=== PATIENT | female | born 1965 | race Caucasian/White ===

== ENCOUNTER → 2016-11-17 | Outpatient (CLI) | payer OTHER ==
[~2016-11-17] VITALS: Ht 157.5 cm; Wt 79.6 kg
[~2016-11-17] MED LIST: ABAT125S SQ; AMOX1TAB12 PO; CALC60OI2 TP; CATHETER FLUSH 10 ML SYR IV PRN; CLIN150V3 IJ; CLIN300C11 PO; CLIN300C3 PO; CLON1TAB3 PO; CYCL10TA45; DULO30CA PO; DULO60CA58 PO; DULO60CA6 PO; ESOM40CA52 PO; FLC1T PO; FLUOXETINE 40 MG; FLX20C; GBPN300C PO; HYDR-32 PO; HYDR-3820 PO; IMIP50TA4 PO; METHOTREXATE 2.5 MG; MILN50TA PO; MORP15TA PO; MUPI22OI TP; SMV20T PO; TOCI400V IV; TOCI80VI IV; VANCOMYCIN 1 GM/NS 250 ML IVPB IV ONE; ZLP10T; [UNRECOGNIZED DRUG - OTHER]; [UNRECOGNIZED DRUG - OTHER]
--- OUTSIDE RECORDS SUMMARY | 2016-11-17 09:54 | XMS REPORT | Continuity of Care Document ---
Author Author [facility] Organization [facility] Address Unknown Phone Unavailable Allergies Active Description Code Type Severity Reaction Onset Reported/Identified Relationship to Patient Clinical Status Yes NKANo Known Allergies NKA Miscellaneous Allergy Unknown N/ A 11/26/2005 Medications Problems Date Dx Coded Attending Type Code Diagnosis Diagnosed By 02/19/2012 Ot 272.4 02/19/2012 Ot 311 02/19/2012 Ot 338.29 02/19/2012 Ot 682.0 02/19/2012 Ot 714.0 02/19/2012 Ot 780.52 02/19/2012 Ot V15.81 12/31/2012 Ot 780.4 02/20/2015 GERRY MAURER DOLINE S Ot 250.00 02/20/2015 PHILIP MAURER DOQUELINE S Ot 272.4 04/20/2015 LIBERTAD DOPHILIPMIKI S Ot 272.4 07/20/2015 Ot V76.12 07/20/2015 PARAGNDBRIAN DO, MIKI S Ot 272.4 07/20/2015 PARAGNDBRIAN DO, MIKI S Ot 720.2 07/20/2015 LIBERTAD DO MIKI S Ot 724.2 07/20/2015 LIBERTAD DOPHILIPMIKI S Ot V58.69 07/20/2015 PARAGNDER DOPHILIPMIKI S Ot V70.0 07/20/2015 PARAGNDER DO, MIKI S Ot 272.4 07/20/2015 PARAGNDER DO, MIKI S Ot 780.79 07/20/2015 LIBERTAD DOPHILIPMIKI S Ot 790.29 07/20/2015 SADIQ ALMENDAREZ SERVICE LEARNING COORDINATOR Ot 272.4 07/20/2015 SADIQ ALMENDAREZ SERVICE LEARNING COORDINATOR Ot 790.5 07/20/2015 GERRY MAURER DOLINE S Ot 250.00 07/20/2015 PHILIP MAURER DOQUELINE S Ot 272.4 07/20/2015 GERRY MAURER DOLINE S Ot 272.4 08/09/2015 GERRY MAURER DOLINE S Ot E78.5 08/09/2015 GERRY MAURER DOLINE S Ot I10 12/22/2015 REYMUNDO MANN Ot R22.31 01/25/2016 ZARIA MUHAMMAD MD Ot L40.9 PSORIASIS, UNSPECIFIED 01/25/2016 ZARIA MUHAMMAD MD Ot M06.9 RHEUMATOID ARTHRITIS, UNSPECIFIED 01/25/2016 ZARIA MUHAMMAD MD Ot Z79.891 ALF (CURRENT) USE OF OPIATE ANALGE 01/25/2016 REYMUNDO MANN Ot R22.31 LOCALIZED SWELLING, MASS AND LUMP , RIGHT 01/28/2016 ZARIA MUHAMMAD MD Ot L40.9 PSORIASIS, UNSPECIFIED 01/28/2016 ZARIA MUHAMMAD MD Ot M06.9 RHEUMATOID ARTHRITIS, UNSPECIFIED 01/28/2016 ZARIA MUHAMMAD MD Ot Z79.891 ALF (CURRENT) USE OF OPIATE ANALGE 04/17/2016 REYMUNDO MANN Ot R22.31 LOCALIZED SWELLING, MASS AND LUMP , RIGHT 04/23/2016 PARAGKAREN SMITH MIKI S Ot Z12.31 ENCNTR SCREEN MAMMOGRAM FOR MALIGNANT NE Procedures Results Encounters ACCT No. Visit Date/Time Discharge Status Pt. Type Provider Facility Loc./Unit Complaint [id number] 01/25/2016 21:05:00 2015 21:30:00 DIS Emergency ZARIA MUHAMMAD MD [facility] ER L ANKLE ULCER [id number] 07/20/2015 08:26:00 2014 23:59:59 CLS Outpatient PARAGNDPHILIP TORRES DOQUELINE S [facility] LAB [id number] 03/28/2015 07:55:00 2014 23:59:59 CLS Outpatient LIBERTAD SMITH MIKI S [facility] LAB [id number] 01/16/2015 09:14:00 2014 23:59:59 CLS Outpatient PARAGNDBRIAN SMITH MIKI S [facility] LAB [id number] 06/09/2014 07:24:00 2013 23:59:59 CLS Outpatient SADIQ ALMENDAREZP [facility] LAB [id number] 12/30/2013 07:46:00 2013 23:59:59 CLS Outpatient ORENDER DO, MIKI S [facility] LAB [id number] 09/26/2013 09:31:00 2012 23:59:59 CLS Outpatient ORENDER DO, MIKI S [facility] LAB [id number] 05/23/2013 07:56:00 2012 23:59:59 CLS Outpatient ORENDER DO, MIKI S [facility] RAD [id number] 04/17/2016 12:29:00 ACT Outpatient ORENDER DO, MIKI S [facility] RAD [id number] 10/29/2015 15:26:00 ACT Outpatient REYMUNDO MANN [facility] RAD [id number] 07/20/2015 08:26:00 Document Registration [id number] 12/31/2012 20:10:00 Document Registration [id number] 11/26/2012 10:36:00 Document Registration [id number] 02/11/2012 23:58:00 Document Registration
[2016-11-17 10:44] VITALS: BP 130/78
== END ==
LOC: SDC 09:50
PROVIDERS: ATTEND Nurse Practitioner
DX: L03.113 Cellulitis of right upper limb (principal)
CPT/HCPCS: 96365

== ENCOUNTER 2016-11-18 09:02 | Inpatient (IN) | payer OTHER ==
[~2016-11-18] VITALS: Ht 157.5 cm; Wt 80.7 kg
[~2016-11-18 09:02] MED LIST changes: -AMOX1TAB12 PO; -CATHETER FLUSH 10 ML SYR IV PRN; -CLIN300C11 PO; -DULO60CA58 PO; -ESOM40CA52 PO; -HYDR-3820 PO; -TOCI400V IV; -VANCOMYCIN 1 GM/NS 250 ML IVPB IV ONE
[2016-11-18] MEDS ORDERED: PATIENT MAY USE OWN MEDS, ALL PO SCH (09:15)
[2016-11-18] MEDS ORDERED: HYDROcodone/APAP 10 MG/325 MG (LORTAB) TAB PO PRN ×2 (09:15→19:15)
[2016-11-18] MEDS ORDERED: VANCOMYCIN INJECTION 0.1 MG in NS (IVPB) 250 ML IV SCH (09:15)
[2016-11-18] MEDS: VANCOMYCIN 1250 MG/NS 250 ML IVPB IV SCH ×4 (10:53→21:05)
[2016-11-18 10:54] LABS: BASOPHILS % (AUTO) 0 % (0-10); EOSINOPHILS # (AUTO) 0.1 10^3/uL (0.0-0.3); EOSINOPHILS % (AUTO) 1 % (0-10); LYMPHOCYTES # (AUTO) 2.2 X 10^3 (1.0-4.0); LYMPHOCYTES % (AUTO) 24 % (12-44); MEAN CORPUSCULAR HEMOGLOBIN 30 PG (25-34); MEAN CORPUSCULAR HGB CONC 33 G/DL (32-36); MEAN CORPUSCULAR VOLUME 90 FL (80-99); MEAN PLATELET VOLUME 9.2 FL (7.4-10.4); MONOCYTES # (AUTO) 0.7 X 10^3 (0.0-1.0); MONOCYTES % (AUTO) 8 % (0-12); NEUTROPHILS # (AUTO) 5.9 X 10^3 (1.8-7.8); NEUTROPHILS % (AUTO) 66 % (42-75); PLATELET COUNT 260 10^3/uL (130-400); RED BLOOD COUNT 4.02 10^6/uL (4.35-5.85); RED CELL DISTRIBUTION WIDTH 14.4 % (10.0-14.5); WHITE BLOOD COUNT 8.9 10^3/uL (4.3-11.0)
[2016-11-18] MEDS ORDERED: HYDR-3820 PO (11:12)
[2016-11-18] MEDS ORDERED: DULO60CA58 PO (11:12)
[2016-11-18] MEDS ORDERED: ESOM40CA52 PO (11:12)
[2016-11-18] MEDS ORDERED: IMIP50TA4 PO (11:12)
[2016-11-18] MEDS ORDERED: CLON1TAB3 PO (11:12)
[2016-11-18] MEDS ORDERED: CLIN300C11 PO (11:12)
[2016-11-18 11:13] LABS: ALANINE AMINOTRANSFERASE 22 U/L (0-55); ALBUMIN 3.7 G/DL (3.2-4.5); ANION GAP 7 MMOL/L (5-14); ASPARTATE AMINO TRANSFERASE 21 U/L (5-34); BILIRUBIN,TOTAL 0.3 MG/DL (0.1-1.0); BLOOD UREA NITROGEN 11 MG/DL (7-18); BUN/CREATININE RATIO 15; CALCIUM 8.7 MG/DL (8.5-10.1); CARBON DIOXIDE 23 MMOL/L (21-32); CHLORIDE 109 MMOL/L (98-107); CREATININE SERUM 0.75 MG/DL (0.60-1.30); GFR ESTIMATED > 60; GLUCOSE 107 MG/DL (70-105); POTASSIUM 4.1 MMOL/L (3.6-5.0); SODIUM 139 MMOL/L (135-145); TOTAL PROTEIN 6.3 G/DL (6.4-8.2)
[2016-11-18 11:24] VITALS: BP 143/89
[2016-11-18] MEDS ORDERED: TOCI400V IV (12:50)
--- OUTSIDE RECORDS SUMMARY | 2016-11-18 13:27 | XMS REPORT | Continuity of Care Document ---
Author Author [facility] Organization [facility] Address Unknown Phone Unavailable Allergies Active Description [...] DOPHILIPMIKI S Ot 790.29 07/20/2015 SADIQ ALMENDAREZ INTERNATIONAL BANK MANAGER Ot 272.4 07/20/2015 SADIQ ALMENDAREZ INTERNATIONAL BANK MANAGER Ot 790.5 07/20/2015 GERRY MAURER DOLINE S [...] UNSPECIFIED 01/25/2016 ZARIA MUHAMMAD MD Ot Z79.891 RETIREMENT (CURRENT) USE OF OPIATE ANALGE 01/25/2016 REYMUNDO MANN Ot R22.31 LOCALIZED SWELLING, MASS AND LUMP , RIGHT 01/28/2016 ZARIA MUHAMMAD MD Ot L40.9 PSORIASIS, UNSPECIFIED 01/28/2016 ZARIA MUHAMMAD MD Ot M06.9 RHEUMATOID ARTHRITIS, UNSPECIFIED 01/28/2016 ZARIA MUHAMMAD MD Ot Z79.891 RETIREMENT (CURRENT) USE OF OPIATE ANALGE 04/17/2016 REYMUNDO MANN Ot R22.31 LOCALIZED SWELLING, MASS AND LUMP , RIGHT 04/23/2016 PARAGKAREN SMITH MIKI S Ot Z12.31 ENCNTR SCREEN MAMMOGRAM FOR MALIGNANT NE Procedures Results Encounters ACCT No. Visit Date/Time Discharge Status Pt. Type Provider Facility Loc./Unit Complaint [id number] 01/25/2016 21:05:00 2015 21:30:00 DIS Emergency ZARIA MUHAMMAD MD [facility] ER L ANKLE ULCER [id number] 07/20/2015 08:26:00 2014 23:59:59 CLS Outpatient PARAGNDPHILIP TORRES DOQUELINE S [facility] LAB [id number] 03/28/2015 07:55:00 2014 23:59:59 CLS Outpatient LIBERTAD SMITH MIKI S [facility] LAB [id number] 01/16/2015 09:14:00 2014 23:59:59 CLS Outpatient PARAGNDBRIAN SMITH MIKI S [facility] LAB [id number] 06/09/2014 07:24:00 2013 23:59:59 CLS Outpatient SADIQ ALMENDAREZP [facility] LAB [id number] 12/30/2013 07:46:00 2013 23:59:59 CLS Outpatient ORENDER DO, MIKI S [facility] LAB [id number] 09/26/2013 09:31:00 2012 23:59:59 CLS Outpatient ORENDER DO, MIKI S [facility] LAB [id number] 05/23/2013 07:56:00 2012 23:59:59 CLS Outpatient ORENDER DO, MIKI S [facility] RAD [id number] 04/17/2016 12:29:00 ACT Outpatient ORENDER DO, MIKI S [facility] RAD [id number] 10/29/2015 15:26:00 ACT Outpatient REYMUNDO MANN [facility] RAD [id number] 07/20/2015 08:26:00 Document Registration [id number] 12/31/2012 20:10:00 Document Registration [id number] 11/26/2012 10:36:00 Document Registration [id number] 02/11/2012 23:58:00 Document Registration
[2016-11-18 14:15] VITALS: BP 143/82
[2016-11-18] MEDS: AUGMENTIN 875 MG TAB (AMOXICILLIN/CLAVULANATE) PO SCH ×2 (15:53→17:23)
[2016-11-18] MEDS: ENOXAPARIN 40 MG/0.4 ML (LOVENOX) SYR SC SCH (15:53)
[2016-11-18 16:55] VITALS: BP 143/87
[2016-11-18] MEDS ORDERED: FLU TRIvalent (5 YOA+) 2016-17 (AFLURIA) 0.5 ML IM ONE (19:15)
[2016-11-18] MEDS ORDERED: methylPREDNISolone 40 MG/ML (Solu-MEDROL) VIAL IV NR (19:15)
[2016-11-18] MEDS ORDERED: clonazePAM 1 MG (KlonoPIN) TAB PO SCH (19:30)
[2016-11-18] MEDS ORDERED: IMIPRAMINE 25 MG (TOFRANIL) TAB PO SCH (19:30)
[2016-11-18] MEDS ORDERED: NON-FORMULARY MEDICATION 1 EA EA (Imipramine HCl 50 MG) PO SCH (19:30)
[2016-11-18 19:35] VITALS: BP 123/71
--- NOTE | 2016-11-18 19:46 | History & Physicial ---
History of Present Illness History of Present Illness Reason for visit/HPI This is a 51 year old female who presented to my office for a 1 day recheck on a cat bite to her right arm. She had been sent the day prior for a gram of vancomycin as an outpatient and started on clindamycin but her arm had worsened with erythema outside her marked lines and increased swelling so it was decided to admit her for IV antibiotics. Date of Admission Nov 18, 2016 at 9:57 am I consulted on this patient on 11/18/16 19:41 Attending Physician Marcella Balbuena DO Admitting Physician Marcella Balbuena DO Consult Allergies and Home Medications Allergies Coded Allergies: NKANo Known Allergies (Verified Allergy, Unknown, 11/26/05) Home Medications Clindamycin HCl 300 Mg Capsule 600 MG PO TID (Reported) TAKES 2 (300 MG) CAPSULES Clonazepam 1 Mg Tablet 1 MG PO DAILY@1930 (Reported) Duloxetine HCl 60 Mg Capsule.dr 60 MG PO DAILY (Reported) Esomeprazole Magnesium 40 Mg Capsule.dr 40 MG PO DAILY (Reported) Hydrocodone/Acetaminophen 1 Each Tablet 3 TAB PO DAILY (Reported) Imipramine HCl 50 Mg Tablet 50 MG PO DAILY@1930 (Reported) Tocilizumab 400 Mg/20 Ml Vial 680 MG IV EVERY 4 WEEKS (Reported) Past Xudjdql-Apyntd-Fsuxbv Hx Patient Social History Alcohol Use: Denies Use Recreational Drug Use: No Smoking Status: Never a Smoker Former smoker/When Quit: Nov 20, 1999 Physical Abuse Screen: No Sexual Abuse: No Recent Foreign Travel: No Contact w/other who traveled: No Recent Hopitalizations: Yes Seasonal Allergies Seasonal Allergies: No Surgeries HX Surgeries: Yes (OP ON FEET) Respiratory Hx Respiratory Disorders: No Cardiovascular Hx Cardiovascular Disorders: No Neurological Hx Neurological Disorders: No Reproductive System Hx Reproductive Disorders: No Genitourinary Hx Genitourinary Disorders: No Gastrointestinal Hx Gastrointestinal Disorders: No Musculoskeletal Hx Musculoskeletal Disorders: Yes Musculoskeletal Disorders: Fibromyalgia, Rheumatoid Arthritis Endocrine Hx Endocrine Disorders: No HEENT HX ENT Disorders: No Cancer Hx Cancer: No Psychosocial Hx Psychiatric Problems: Yes Behavioral Health Disorders: Anxiety, Depression Integumentary HX Skin/Integumentary Disorder: Yes (CELLULITIS ON RIGHT FOREARM) Blood Transfusions Hx Blood Disorders: No Family Medical History Family Hx: Patient reports no known family medical history. Constitutional: No no symptoms reported, No see HPI, No chills, No diaphoresis , No dizziness, No fever, No malaise, No weakness, No weight gain, No weight loss, No other EENTM: No blurred vision, No dental problems, No double vision, No ear discharge, No ear pain, No epistaxis, No eye pain, No hearing loss, No hoarseness, No mouth pain, No mouth swelling, No no symptoms reported, No nose congestion, No nose pain, No other, No see HPI, No tearing, No throat pain, No throat swelling, No vision loss Respiratory: No no symptoms reported, No see HPI, No cough, No dyspnea on exertion, No hemoptysis, No orthopnea, No phlegm, No short of breath, No stridor , No wheezing, No other Cardiovascular: No no symptoms reported, No see HPI, No chest pain, No edema, No Hx of Intervention, No palpitations, No syncope, No vascular heart diseas, No other Gastrointestinal: No RUQ, No LUQ, No RLQ, No LLQ, No no symptoms reported, No see HPI, No abdominal pain, No constipation, No diarrhea, No dysphagia, No hematemesis, No heartburn, No jaundice, No loss of appetite, No melena, No nausea, No vomiting, No other Genitourinary: No no symptoms reported, No see HPI, No decreased output, No discharge, No dysuria, No frequency, No hematuria, No hesitancy, No incontinence , No nocturia, No pain, No other Musculoskeletal: back pain joint pain joint swelling Skin: change in color (right arm redness and swelling) Psychiatric/Neurological: Denies No Symptoms Reported, Denies See HPI, Denies Anxiety, Denies Depressed, Denies Emotional Problems, Denies Headache, Denies Numbness, Denies Paresthesia, Denies Pre-Existing Deficit, Denies Seizure, Denies Tingling, Denies Tremors, Denies Weakness, Denies Other Physical Exam Vital Signs Vital Sign - Last 12Hours 11/18/16 11:24 Temp 98.0 Pulse 66 Resp 18 B/P 143/89 Pulse Ox 95 O2 Delivery Room Air Capillary Refill : General Appearance: No Apparent Distress HEENT: Normal ENT Inspection Neck: Supple Respiratory: Lungs Clear Cardiovascular: Regular Rate, Rhythm Gastrointestinal: Normal Bowel Sounds Non Tender Soft Rectal: Deferred Back: No CVA Tenderness Extremity: Non Tender No Calf Tenderness No Pedal Edema Neurologic/Psychiatric: Alert Oriented x3 Skin: Erythema (to right forearm with swelling and numerous scabbed puncture wounds) Lymphatic: No Adenopathy Comments Laboratory Tests 11/18/16 10:35: Alanine Aminotransferase (ALT/SGPT) 22, Albumin 3.7, Alkaline Phosphatase 59, Anion Gap 7, Aspartate Amino Transf (AST/SGOT) 21, BUN/Creatinine Ratio 15, Basophils # (Auto) 0.0, Basophils (%) (Auto) 0, Blood Urea Nitrogen 11, Calcium Level 8.7, Carbon Dioxide Level 23, Chloride Level 109H, Creatinine 0.75, Eosinophils # (Auto) 0.1, Eosinophils (%) (Auto) 1, Estimat Glomerular Filtration Rate > 60, Glucose Level 107H, Hematocrit 36, Hemoglobin 12.0, Lymphocytes # (Auto) 2.2, Lymphocytes (%) (Auto) 24, Mean Corpuscular Hemoglobin 30, Mean Corpuscular Hemoglobin Concent 33, Mean Corpuscular Volume 90, Mean Platelet Volume 9.2, Monocytes # (Auto) 0.7, Monocytes (%) (Auto) 8, Neutrophils # (Auto) 5.9, Neutrophils (%) (Auto) 66, Platelet Count 260, Potassium Level 4.1, Red Blood Count 4.02L, Red Cell Distribution Width 14.4, Sodium Level 139, Total Bilirubin 0.3, Total Protein 6.3L, White Blood Count 8.9 Assessment/Plan Assessment and Plan 1. Right upper extremity Cellulitis--IV vancomycin and augmentin due to cat bite Clinical Quality Measures DVT/VTE Risk/Contraindication: Risk Factor Score Per Nursin RFS Level Per Nursing on Admit: 2=Moderate MARCELLA BALBUENA DO Nov 18, 2016 7:46 pm
[2016-11-18] MEDS ORDERED: VANCOMYCIN 750 MG ADD-VANTAGE VIAL IV ONE (20:49)
[2016-11-18] MEDS ORDERED: VANCOMYCIN 500 MG/VIAL IV ONE (20:49)
[2016-11-18] MEDS ORDERED: SODIUM CHLORIDE (ADD-VANTAGE) 250 ML ONE (20:55)
[2016-11-19 00:35] VITALS: BP 144/76
[2016-11-19 04:00] VITALS: BP 143/79
[2016-11-19] MEDS: PANTOPRAZOLE 40 MG (PROTONIX) TAB PO SCH (06:01)
[2016-11-19] MEDS: AUGMENTIN 875 MG TAB (AMOXICILLIN/CLAVULANATE) PO SCH ×2 (06:01→17:40)
[2016-11-19 08:00] VITALS: BP 148/98
[2016-11-19] MEDS ORDERED: TROUGH ORDER-PHARMACY XX NR (08:00)
[2016-11-19 08:32] LABS: ANION GAP 12 MMOL/L (5-14); BLOOD UREA NITROGEN 13 MG/DL (7-18); BUN/CREATININE RATIO 17; CALCIUM 9.5 MG/DL (8.5-10.1); CARBON DIOXIDE 21 MMOL/L (21-32); CHLORIDE 106 MMOL/L (98-107); CREATININE SERUM 0.75 MG/DL (0.60-1.30); GFR ESTIMATED > 60; GLUCOSE 199 MG/DL (70-105); POTASSIUM 3.9 MMOL/L (3.6-5.0); SODIUM 139 MMOL/L (135-145)
[2016-11-19] MEDS ORDERED: HYDROcodone/APAP 10 MG/325 MG (LORTAB) TAB PO PRN ×2 (09:00→13:00)
[2016-11-19] MEDS ORDERED: NON-FORMULARY MEDICATION 1 EA EA (Duloxetine HCl 60 MG) PO SCH (09:00)
[2016-11-19] MEDS ORDERED: DULoxetine 30 MG (CYMBALTA) CAP PO SCH (09:00)
[2016-11-19] MEDS ORDERED: NON-FORMULARY MEDICATION 1 EA EA (Esomeprazole Magnesium 40 MG) PO SCH (09:00)
[2016-11-19] MEDS: ENOXAPARIN 40 MG/0.4 ML (LOVENOX) SYR SC SCH (09:31)
[2016-11-19] MEDS: VANCOMYCIN 1250 MG/NS 250 ML IVPB IV SCH ×4 (09:31→20:03)
[2016-11-19 12:00] VITALS: BP 143/80
[2016-11-19 16:45] VITALS: BP 147/79
--- NOTE | 2016-11-19 18:54 | Progress Note (SOAP) ---
Subjective Subjective/Events-last exam Fwup right arm cellulitis from cat bite. Doing much better--less redness and less swelling. Objective Exam Vital Signs Date Time Temp Pulse Resp B/P Pulse Ox O2 Delivery O2 Flow Rate FiO2 11/19/16 16:45 98.0 79 18 147/79 94 Room Air 11/19/16 12:00 99.5 92 18 143/80 91 Room Air 11/19/16 08:00 97.8 88 18 148/98 95 Room Air 11/19/16 04:00 98.0 79 18 143/79 96 Room Air 11/19/16 00:35 98.5 82 18 144/76 92 Room Air 11/18/16 19:35 98.5 83 18 123/71 96 Room Air I & O 11/19/16 07:00 Intake Total 1540 ml Output Total 550 ml Balance 990 ml Capillary Refill : General Appearance: No Apparent Distress Neck: Supple Neurologic/Psychiatric: Alert Oriented x3 Skin: Erythema (to right forearm much less and much less swelling) Results Lab Laboratory Tests 11/19/16 08:03: Anion Gap 12, BUN/Creatinine Ratio 17, Blood Urea Nitrogen 13, Calcium Level 9.5 , Carbon Dioxide Level 21, Chloride Level 106, Creatinine 0.75, Estimat Glomerular Filtration Rate > 60, Glucose Level 199H, Potassium Level 3.9, Sodium Level 139, Vancomycin Level Trough 13.7 Assessment/Plan Assessment/Plan Assess & Plan/Chief Complaint 1. Right Arm Cellulitis from Cat Bite--continue vancomycin and augmentin, likely home tomorrow Diagnosis/Problems: Clinical Quality Measures DVT/VTE Risk/Contraindication: Risk Factor Score Per Nursin RFS Level Per Nursing on Admit: 2=Moderate MIKI MAURER DO Nov 19, 2016 6:54 pm
[2016-11-19] MEDS ORDERED: clonazePAM 1 MG (KlonoPIN) TAB PO SCH (19:30)
[2016-11-19] MEDS ORDERED: IMIPRAMINE 50 MG PO SCH (19:30)
[2016-11-19 20:00] VITALS: BP 150/71
[2016-11-20] VITALS: BP 120/64
[2016-11-20] MEDS: AUGMENTIN 875 MG TAB (AMOXICILLIN/CLAVULANATE) PO SCH (06:09)
[2016-11-20] MEDS: PANTOPRAZOLE 40 MG (PROTONIX) TAB PO SCH (06:09)
[2016-11-20 08:00] VITALS: BP 124/72
[2016-11-20] MEDS ORDERED: AMOX1TAB12 PO (08:53)
[2016-11-20] MEDS ORDERED: DULOXETINE 60MG CAPSULE PO SCH (09:00)
[2016-11-20] MEDS ORDERED: VANCOMYCIN 1250 MG/NS 250 ML IVPB IV SCH ×2 (09:00)
[2016-11-20] MEDS: ENOXAPARIN 40 MG/0.4 ML (LOVENOX) SYR SC SCH (09:02)
[2016-11-20] MEDS ORDERED: CATHETER FLUSH 10 ML SYR IV PRN (10:15)
[2016-11-20 10:25] VITALS: BP 124/72
[2016-11-20] MEDS ORDERED: CATHETER FLUSH 10 ML SYR IV SCH (14:00)
--- NOTE | 2016-11-20 18:06 | Discharge Summary ---
Diagnosis/Chief Complaint Date of Admission Nov 18, 2016 at 9:57 am Date of Discharge Nov 20, 2016 at 10:25 am Discharge Date: Nov 20, 2016 Admission Diagnosis Admission Diagnosis 1. Right upper extremity Cellulitis--IV vancomycin and augmentin due to cat bite Discharge Diagnosis 1. Right Arm Cellulitis--improved 2. Right Arm Cat Bite--improving 3. Rheumatoid Arthritis--stable 4. Depression--stable Reason Hospital Visit This is a 51 year old female who presented to my office for a 1 day recheck on a cat bite to her right arm. She had been sent the day prior for a gram of vancomycin as an outpatient and started on clindamycin but her arm had worsened with erythema outside her marked lines and increased swelling so it was decided to admit her for IV antibiotics. Discharge Summary Hospital Course Hospital Course This is a 51 year old female who presented to my office for a 1 day recheck on a cat bite to her right arm. She had been sent the day prior for a gram of vancomycin as an outpatient and started on clindamycin but her arm had worsened with erythema outside her marked lines and increased swelling so it was decided to admit her for IV antibiotics. She was admitted and started on IV vancomycin and oral augmentin. By the following hospital day, her right arm redness and swelling were much improved. She was afebrile. She was kept one more day for IV antibiotics due to the fact that she takes immunocompromising drugs for her rheumatoid. By the day of discharge, her right arm redness was resolved, there was no swelling or pain in the arm and no palpable lymph nodes. She was given her morning dose of IV vancomycin and sent home to continue oral augmentin. She will followup with me in my office in 1 week. Labs Laboratory Tests 11/18/16 10:35: Chloride Level 109H, Glucose Level 107H, Red Blood Count 4.02L, Total Protein 6.3L 11/19/16 08:03: Glucose Level 199H Procedures None. Discharge Physical Examination Allergies: Coded Allergies: NKANo Known Allergies (Verified Allergy, Unknown, 11/26/05) Vitals & I&Os Vital Signs Date Time Temp Pulse Resp B/P Pulse Ox O2 Delivery O2 Flow Rate FiO2 11/20/16 10:25 72 18 124/72 97 11/20/16 08:00 98.8 Room Air General Appearance: Alert, Oriented X3, Cooperative, No Acute Distress Skin: Other (right arm with much less erythema and swelling and nontender) Psych/Mental Status: Mental Status NL, Mood NL Discharge Home Medications Reviewed and agree with Discharge Medication list on patient's Discharge Instruction sheet Instructions to Patient/Family Please see electonic discharge instructions given to patient. Clinical Quality Measures DVT/VTE Risk/Contraindication: Risk Factor Score Per Nursin RFS Level Per Nursing on Admit: 2=Moderate MIKI MAURER DO Nov 20, 2016 6:06 pm
== END 2016-11-20 10:25 | disposition home or self-care (01) | DRG 603 ==
LOC: 4TH 09:57 → SURG 09:58 → 4TH 14:00
PROVIDERS: ADMIT Family Medicine; ATTEND Family Medicine
DX: L03.113 Cellulitis of right upper limb (principal); S51.851A Open bite of right forearm, initial encounter; W55.01XA Bitten by cat, initial encounter; Y99.8 Other external cause status; M79.7 Fibromyalgia; M06.9 Rheumatoid arthritis, unspecified; F32.9 Major depressive disorder, single episode, unspecified; F41.9 Anxiety disorder, unspecified
CPT/HCPCS: 36415; 76937; 80048; 80053; 80202; 85025

== ENCOUNTER → 2017-05-11 | Outpatient (CLI) | payer OTHER ==
[~2017-05-11] MED LIST changes: +AMOX1TAB12 PO; +CLIN300C11 PO; +DULO60CA58 PO; +ESOM40CA52 PO; +HYDR-3820 PO; +TOCI400V IV
--- NOTE | 2017-05-11 18:26 | Diagnostic Imaging Report ---
INDICATION: Cough. COMPARISON: 02/18/2011 FINDINGS: Frontal and lateral radiographic views of the chest were obtained and showed normal cardiac silhouette and pulmonary vasculature. The lungs show minimal airspace opacities within the lateral left lung base likely on the basis of atelectasis. The lungs are otherwise clear. There is no large effusion or pneumothorax on either side. Osseous structures show no gross acute abnormalities. IMPRESSION: 1. Probable left basilar atelectasis. Otherwise, no acute cardiopulmonary process. Dictated by: Dictated on workstation # [id number]
== END ==
LOC: RAD 16:57
PROVIDERS: ATTEND Family Medicine
DX: R05 Cough (principal)
CPT/HCPCS: 71020

== ENCOUNTER → 2017-06-17 | Outpatient (CLI) | payer OTHER ==
[2017-06-17 16:49] LABS: BASOPHILS % (AUTO) 0 % (0-10); EOSINOPHILS # (AUTO) 0.1 10^3/uL (0.0-0.3); EOSINOPHILS % (AUTO) 1 % (0-10); LYMPHOCYTES # (AUTO) 2.6 X 10^3 (1.0-4.0); LYMPHOCYTES % (AUTO) 28 % (12-44); MEAN CORPUSCULAR HEMOGLOBIN 31 PG (25-34); MEAN CORPUSCULAR HGB CONC 34 G/DL (32-36); MEAN CORPUSCULAR VOLUME 91 FL (80-99); MEAN PLATELET VOLUME 9.9 FL (7.4-10.4); MONOCYTES # (AUTO) 0.7 X 10^3 (0.0-1.0); MONOCYTES % (AUTO) 8 % (0-12); NEUTROPHILS # (AUTO) 5.9 X 10^3 (1.8-7.8); NEUTROPHILS % (AUTO) 63 % (42-75); PLATELET COUNT 244 10^3/uL (130-400); RED BLOOD COUNT 4.75 10^6/uL (4.35-5.85); WHITE BLOOD COUNT 9.3 10^3/uL (4.3-11.0)
[2017-06-19 13:12] LABS: MYCOPLASMA IGM IFA ANTIBODY <1:10 (<1:10)
[2017-06-19 15:23] LABS: B PARAPERTUSIS DNA Not Detected (Not Detected); B PERTUSSIS DNA Not Detected (Not Detected)
== END ==
LOC: LAB 16:19
PROVIDERS: ATTEND Family Medicine
DX: R05 Cough; Z20.818 Contact with and (suspected) exposure to other bacterial communicable diseases
CPT/HCPCS: 36415; 85025; 86738; 87798

== ENCOUNTER → 2017-07-27 | Outpatient (CLI) | payer OTHER ==
[2017-07-27 08:35] LABS: ALANINE AMINOTRANSFERASE 23 U/L (0-55); ALBUMIN 4.5 GM/DL (3.2-4.5); ANION GAP 11 MMOL/L (5-14); ASPARTATE AMINO TRANSFERASE 17 U/L (5-34); BILIRUBIN,TOTAL 0.5 MG/DL (0.1-1.0); BLOOD UREA NITROGEN 13 MG/DL (7-18); BUN/CREATININE RATIO 17; CALCIUM 9.6 MG/DL (8.5-10.1); CARBON DIOXIDE 23 MMOL/L (21-32); CHLORIDE 108 MMOL/L (98-107); CHOLESTEROL 301 MG/DL (< 200); CREATININE SERUM 0.76 MG/DL (0.60-1.30); DIRECT LDL 194 MG/DL (1-129); GFR ESTIMATED > 60; GLUCOSE 106 MG/DL (70-105); POTASSIUM 4.4 MMOL/L (3.6-5.0); SODIUM 142 MMOL/L (135-145); TOTAL PROTEIN 7.2 GM/DL (6.4-8.2); TRIGLYCERIDES 179 MG/DL (<150); VLDL CHOLESTEROL 36 MG/DL (5-40)
[2017-07-27 08:55] LABS: THYROID STIMULATING HORMONE 3.82 UIU/ML (0.35-4.94)
== END ==
LOC: LAB 08:03
PROVIDERS: ATTEND Family Medicine
DX: E88.81 Metabolic syndrome and other insulin resistance (principal)
CPT/HCPCS: 36415; 80053; 80061; 83036; 84443

== ENCOUNTER → 2018-02-12 | Outpatient (CLI) | payer OTHER | LOC: RAD 09:50 | PROVIDERS: ATTEND Obstetrics & Gynecology | DX: Z12.31 Encounter for screening mammogram for malignant neoplasm of breast (principal) ==

== ENCOUNTER → 2018-04-05 | Outpatient (CLI) | payer OTHER ==
[~2018-04-05] MED LIST changes: +CLON1TAB4 PO; +ONDA4TAB10 PO; +PANT40TA2 PO; +SUCR1TAB PO; +SUCR1TAB36 PO
[2018-04-05 10:33] LABS: BASOPHILS % (AUTO) 0 % (0-10); EOSINOPHILS # (AUTO) 0.5 10^3/uL (0.0-0.3); EOSINOPHILS % (AUTO) 5 % (0-10); HEMATOCRIT 45 % (35-52); HEMOGLOBIN 15.1 G/DL (11.5-16.0); LYMPHOCYTES # (AUTO) 2.2 X 10^3 (1.0-4.0); LYMPHOCYTES % (AUTO) 22 % (12-44); MEAN CORPUSCULAR HEMOGLOBIN 31 PG (25-34); MEAN CORPUSCULAR HGB CONC 34 G/DL (32-36); MEAN CORPUSCULAR VOLUME 90 FL (80-99); MEAN PLATELET VOLUME 9.9 FL (7.4-10.4); MONOCYTES # (AUTO) 0.7 X 10^3 (0.0-1.0); MONOCYTES % (AUTO) 7 % (0-12); NEUTROPHILS # (AUTO) 6.4 X 10^3 (1.8-7.8); NEUTROPHILS % (AUTO) 65 % (42-75); PLATELET COUNT 268 10^3/uL (130-400); RED BLOOD COUNT 4.94 10^6/uL (4.35-5.85); RED CELL DISTRIBUTION WIDTH 13.8 % (10.0-14.5)
[2018-04-05 10:53] LABS: ALANINE AMINOTRANSFERASE 25 U/L (0-55); ALBUMIN 4.6 GM/DL (3.2-4.5); ALKALINE PHOSPHATASE 77 U/L (40-136); AMYLASE 39 U/L (25-125); BILIRUBIN,TOTAL 0.5 MG/DL (0.1-1.0); BUN/CREATININE RATIO 20; CARBON DIOXIDE 25 MMOL/L (21-32); CHLORIDE 108 MMOL/L (98-107); CREATININE SERUM 0.82 MG/DL (0.60-1.30); GFR ESTIMATED > 60; GLUCOSE 109 MG/DL (70-105); LIPASE 15 U/L (8-78); POTASSIUM 4.1 MMOL/L (3.6-5.0); SODIUM 142 MMOL/L (135-145); TOTAL PROTEIN 7.1 GM/DL (6.4-8.2)
[2018-04-05 11:12] LABS: ERYTHROCYTE SEDIMENTATION RATE 2 MM/HR (0-30)
== END ==
LOC: LAB 10:15
PROVIDERS: ATTEND Family Medicine
DX: R10.13 Epigastric pain (principal)
CPT/HCPCS: 36415; 80053; 82150; 83690; 85025; 85652

== ENCOUNTER 2018-04-11 17:06 | Inpatient (IN) | payer OTHER ==
[~2018-04-11] VITALS: Ht 162.6 cm; Wt 80.8 kg
[~2018-04-11 17:06] MED LIST changes: -ONDA4TAB10 PO; -PANT40TA2 PO; -SUCR1TAB PO; -SUCR1TAB36 PO
[2018-04-11 18:03] LABS: BASOPHILS % (AUTO) 0 % (0-10); EOSINOPHILS # (AUTO) 0.4 10^3/uL (0.0-0.3); EOSINOPHILS % (AUTO) 3 % (0-10); HEMATOCRIT 44 % (35-52); HEMOGLOBIN 14.7 G/DL (11.5-16.0); LYMPHOCYTES # (AUTO) 2.4 X 10^3 (1.0-4.0); LYMPHOCYTES % (AUTO) 19 % (12-44); MEAN CORPUSCULAR HEMOGLOBIN 31 PG (25-34); MEAN CORPUSCULAR HGB CONC 34 G/DL (32-36); MEAN CORPUSCULAR VOLUME 92 FL (80-99); MEAN PLATELET VOLUME 9.5 FL (7.4-10.4); MONOCYTES # (AUTO) 0.7 X 10^3 (0.0-1.0); MONOCYTES % (AUTO) 6 % (0-12); NEUTROPHILS # (AUTO) 9.1 X 10^3 (1.8-7.8); NEUTROPHILS % (AUTO) 72 % (42-75); PLATELET COUNT 274 10^3/uL (130-400); RED BLOOD COUNT 4.75 10^6/uL (4.35-5.85); RED CELL DISTRIBUTION WIDTH 13.8 % (10.0-14.5); WHITE BLOOD COUNT 12.6 10^3/uL (4.3-11.0)
[2018-04-11 18:23] LABS: ALANINE AMINOTRANSFERASE 25 U/L (0-55); ALBUMIN 4.8 GM/DL (3.2-4.5); ALKALINE PHOSPHATASE 76 U/L (40-136); BILIRUBIN,TOTAL 0.5 MG/DL (0.1-1.0); BUN/CREATININE RATIO 13; CALCIUM 9.9 MG/DL (8.5-10.1); CARBON DIOXIDE 27 MMOL/L (21-32); CHLORIDE 103 MMOL/L (98-107); CREATININE SERUM 0.85 MG/DL (0.60-1.30); GFR ESTIMATED > 60; GLUCOSE 98 MG/DL (70-105); POTASSIUM 3.9 MMOL/L (3.6-5.0); SODIUM 139 MMOL/L (135-145); TOTAL PROTEIN 7.3 GM/DL (6.4-8.2)
[2018-04-11] MEDS ORDERED: fentaNYL INJECTION 100 MCG/2 ML AMP IVP ONE (18:30)
[2018-04-11] MEDS ORDERED: cefTRIAXone INJECTION 1,000 MG in NS (IVPB) 50 ML IV ONE (19:00)
--- NOTE | 2018-04-11 19:07 | ED Integumentary General ---
General Chief Complaint: Bite-Animal/Human/Insect Stated Complaint: DOG BITE Nursing Triage Note: PT AMBULATED TO RM 10 W/O DIFFICULTIES. PT STATES SHE WAS BITTEN BY A DOG YESTERDAY AND SEEN AT [place]. PT STATES POLICE REPORT HAS ALREADY BEEN FILED. PT IS WORRIED BITE IS INFECTED IT IS OOZING AND HAS A FOUL ODOR. PT STATES SHE WAS PUT ON AUGMENTIN YESTERDAY. PT C/O PAIN AND SWELLING HAS WORSENED. Source: patient Exam Limitations: no limitations History of Present Illness Date Seen by Provider: Apr 11, 2018 Time Seen by Provider: 17:50 Initial Comments Patient is a 53-year-old female who presents to the emergency room complaints of a dog bite to the right forearm and increased swelling, pain and infection. She reports that yesterday a neighbor's dog bit her on her right forearm and she presented to the emergency room at [facility] where they put in two stitches in the puncture wound in her right forearm, gave her prescription for Augmentin, and updated her tetanus vaccine. He reports that this morning she woke up with redness, swelling and a foul-smelling drainage from the wound. She denies fevers, reports that she does have RA in gets "activian" and infusions every 6 weeks. Timing/Duration: yesterday Severity: mild Location: extremities Possible Cause: other (dog bite) Associated Symptoms: edema Allergies and Home Medications Allergies Coded Allergies: NKANo Known Allergies (Verified Allergy, Unknown, 11/26/05) Home Medications Duloxetine HCl 60 Mg Capsule.dr, 60 MG PO DAILY, (Reported) Hydrocodone/Acetaminophen 1 Each Tablet, 3 TAB PO DAILY, (Reported) Pantoprazole Sodium 40 Mg Tablet.dr, 40 MG PO BID, (Reported) Tocilizumab 400 Mg/20 Ml Vial, 680 MG IV EVERY 4 WEEKS, (Reported) Patient Home Medication List Home Medication List Reviewed: Yes Constitutional: see HPI; No chills, No diaphoresis, No fever EENTM: see HPI; No no symptoms reported, No ear discharge, No hearing loss Respiratory: see HPI; No cough, No dyspnea on exertion, No short of breath, No wheezing Cardiovascular: see HPI; No chest pain, No edema, No Hx of Intervention Gastrointestinal: see HPI; No abdominal pain, No constipation, No diarrhea Genitourinary: see HPI; No decreased output, No discharge, No dysuria Musculoskeletal: see HPI; No back pain, No gout Skin: see HPI, other (drainage, redness, pain to the right forearm.) Psychiatric/Neurological: See HPI; Denies Anxiety, Denies Depressed Endocrine: See HPI; Denies Excessive Sweating, Denies Flushing Hematologic/Lymphatic: See HPI; Denies Anemia Past Beurbui-Gqgbhp-Zgbdxl Hx Past Med/Social Hx: Reviewed Nursing Past Med/Soc Hx Patient Social History Type Used: Cigarettes Former Smoker, Quit: Nov 17, 2001 Recent Foreign Travel: No Contact w/Someone Who Travel: No Recent Infectious Disease Expo: No Recent Hopitalizations: No Seasonal Allergies Seasonal Allergies: No Past Medical History Surgeries: Yes (OP ON FEET) Adenoidectomy, Gallbladder, Tonsillectomy, Tubal Ligation Respiratory: No Cardiac: No Neurological: No Reproductive Disorders: 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 Physical Exam Vital Signs Vital Signs - First Documented 04/11/18 17:43 Temp 98.0 Pulse 82 Resp 20 B/P (MAP) 168/93 (118) Pulse Ox 98 O2 Delivery Room Air Capillary Refill : Less Than 3 Seconds General Appearance: WD/WN, no apparent distress HEENT: PERRL/EOMI, normal ENT inspection, TMs normal, pharynx normal Neck: non-tender, full range of motion, supple, normal inspection Cardiovascular: regular rate, rhythm, no edema, no gallop, no JVD, no murmur Respiratory: chest non-tender, lungs clear, normal breath sounds, no respiratory distress, no accessory muscle use Gastrointestinal: normal bowel sounds, non tender, soft, no organomegaly, no pulsatile mass Back: normal inspection, no CVA tenderness, no vertebral tenderness Extremities: normal range of motion, non-tender, normal inspection, no pedal edema, no calf tenderness Neurologic/Psychiatric: alert, normal mood/affect, oriented x 3 Skin: other (there is a 1-1/2 cm puncture wound that has 2 sutures in it on the right forearm. The wound is draining a serosanguineous foul-smelling drainage. There is an area surrounding the puncture site that is warm to the touch indurated and erythematous.) Skin Problem Character: abscess, drainage, erythema, tenderness Lymphatic: no adenopathy Progress/Results/Core Measures Results/Orders Lab Results Laboratory Tests Test 04/11/18 17:47 04/11/18 17:54 Range/Units Sodium Level 139 135-145 MMOL/L Potassium Level 3.9 3.6-5.0 MMOL/L Chloride Level 103 98-107 MMOL/L Carbon Dioxide Level 27 21-32 MMOL/L Anion Gap 9 5-14 MMOL/L Blood Urea Nitrogen 11 7-18 MG/DL Creatinine 0.85 0.60-1.30 MG/DL Estimat Glomerular Filtration Rate > 60 BUN/Creatinine Ratio 13 Glucose Level 98 70-105 MG/DL Calcium Level 9.9 8.5-10.1 MG/DL Total Bilirubin 0.5 0.1-1.0 MG/DL Aspartate Amino Transf (AST/SGOT) 26 5-34 U/L Alanine Aminotransferase (ALT/SGPT) 25 0-55 U/L Alkaline Phosphatase 76 40-136 U/L C-Reactive Protein High Sensitivity 0.09 0.00-0.50 MG/DL Total Protein 7.3 6.4-8.2 GM/DL Albumin 4.8 H 3.2-4.5 GM/DL White Blood Count 12.6 H 4.3-11.0 10^3/uL Red Blood Count 4.75 4.35-5.85 10^6/uL Hemoglobin 14.7 11.5-16.0 G/DL Hematocrit 44 35-52 % Mean Corpuscular Volume 92 80-99 FL Mean Corpuscular Hemoglobin 31 25-34 PG Mean Corpuscular Hemoglobin Concent 34 32-36 G/DL Red Cell Distribution Width 13.8 10.0-14.5 % Platelet Count 274 130-400 10^3/uL Mean Platelet Volume 9.5 7.4-10.4 FL Neutrophils (%) (Auto) 72 42-75 % Lymphocytes (%) (Auto) 19 12-44 % Monocytes (%) (Auto) 6 0-12 % Eosinophils (%) (Auto) 3 0-10 % Basophils (%) (Auto) 0 0-10 % Neutrophils # (Auto) 9.1 H 1.8-7.8 X 10^3 Lymphocytes # (Auto) 2.4 1.0-4.0 X 10^3 Monocytes # (Auto) 0.7 0.0-1.0 X 10^3 Eosinophils # (Auto) 0.4 H 0.0-0.3 10^3/uL Basophils # (Auto) 0.0 0.0-0.1 10^3/uL My Orders Orders - CINDY RICO Cbc With Automated Diff (04/11/18 17:54) Comprehensive Metabolic Panel (04/11/18 17:54) Hs C Reactive Protein (04/11/18 17:54) Saline Lock/Iv-Start (04/11/18 17:54) Wound Culture (04/11/18 17:54) Fentanyl Injection (Sublimaze Injection (04/11/18 18:30) Ceftriaxone Injection (Rocephin Injectio (04/11/18 19:00) Lactic Acid Analyzer (04/11/18 19:05) Piperacillin/Tazobactam (Zosyn Vial) (04/11/18 19:15) Medications Given in ED Current Medications Medications Dose Ordered Sig/Lemuel Route Start Time Stop Time Status Last Admin Dose Admin Fentanyl Citrate 50 mcg ONCE ONCE IVP 04/11/18 18:30 04/11/18 18:31 DC 04/11/18 18:40 50 MCG Piperacillin Sod/ Tazobactam Sod 3.375 gm/Dextrose 100 ml @ 200 mls/hr ONCE ONCE IV 04/11/18 19:15 04/11/18 19:44 DC 04/11/18 19:23 200 MLS/HR Vital Signs/I&O 04/11/18 17:43 Temp 98.0 Pulse 82 Resp 20 B/P (MAP) 168/93 (118) Pulse Ox 98 O2 Delivery Room Air Blood Pressure Mean: 118 Progress Progress Note : Progress Note I removed the sutures that were in place in the puncture wound. The sutures were intact. There was large amounts of serosanguineous drainage after the puncture wound was opened. Departure Communication (Admissions) Time/Spoke to Admitting Phy: 19:[address] Parmar she agrees with the patient's history of being immunocompromised IV antibiotics. And agrees with complaints of admission and recommends Zosyn and vancomycin. Impression Primary Impression: Bite by animal Additional Impression: Cellulitis of right upper arm Disposition: 09 ADMITTED INPATIENT Condition: Stable/Unchanged Admissions Decision to Admit Reason: Admit from ER (Trauma) Decision to Admit/Date: Apr 11, 2018 Time/Decision to Admit Time: 19:00 Departure-Patient Inst. Referrals: MIKI MAURER DO (PCP/Family) Primary Care Physician CINDY RICO Apr 11, 2018 19:07
[2018-04-11] MEDS ORDERED: PIPERACILLIN/TAZOBACTAM 3.375 GM in D5W 100 ML IVPB 100 ML IV ONE (19:15)
[2018-04-11] MEDS ORDERED: PANT40TA2 PO (19:18)
[2018-04-11] MEDS ORDERED: SUCR1TAB36 PO (19:18)
[2018-04-11] MEDS ORDERED: DULO60CA6 PO (19:52)
[2018-04-11 20:15] VITALS: BP 177/81
[2018-04-11] MEDS ORDERED: fentaNYL INJECTION 100 MCG/2 ML AMP IV PRN (20:45)
[2018-04-11] MEDS ORDERED: VANCOMYCIN 1 GM/NS 250 ML IVPB IV ONE ×2 (20:45)
[2018-04-12 00:57] VITALS: BP 156/86
[2018-04-12] MEDS: PIPERACILLIN/TAZO 3.375 GM/D5W 100 ML IV SCH ×6 (03:33→18:36)
[2018-04-12 04:32] VITALS: BP 142/67
[2018-04-12 05:27] LABS: BASOPHILS % (AUTO) 0 % (0-10); EOSINOPHILS # (AUTO) 0.4 10^3/uL (0.0-0.3); EOSINOPHILS % (AUTO) 4 % (0-10); HEMATOCRIT 41 % (35-52); HEMOGLOBIN 13.8 G/DL (11.5-16.0); LYMPHOCYTES # (AUTO) 1.9 X 10^3 (1.0-4.0); LYMPHOCYTES % (AUTO) 19 % (12-44); MEAN CORPUSCULAR HEMOGLOBIN 31 PG (25-34); MEAN CORPUSCULAR HGB CONC 34 G/DL (32-36); MEAN CORPUSCULAR VOLUME 92 FL (80-99); MEAN PLATELET VOLUME 9.7 FL (7.4-10.4); MONOCYTES # (AUTO) 0.8 X 10^3 (0.0-1.0); MONOCYTES % (AUTO) 8 % (0-12); NEUTROPHILS # (AUTO) 6.8 X 10^3 (1.8-7.8); NEUTROPHILS % (AUTO) 68 % (42-75); PLATELET COUNT 228 10^3/uL (130-400); RED BLOOD COUNT 4.39 10^6/uL (4.35-5.85); RED CELL DISTRIBUTION WIDTH 13.6 % (10.0-14.5); WHITE BLOOD COUNT 9.9 10^3/uL (4.3-11.0)
[2018-04-12 05:44] LABS: ALANINE AMINOTRANSFERASE 21 U/L (0-55); ALKALINE PHOSPHATASE 69 U/L (40-136); BILIRUBIN,TOTAL 0.3 MG/DL (0.1-1.0); BUN/CREATININE RATIO 11; CALCIUM 9.1 MG/DL (8.5-10.1); CARBON DIOXIDE 23 MMOL/L (21-32); CHLORIDE 108 MMOL/L (98-107); GFR ESTIMATED > 60; GLUCOSE 116 MG/DL (70-105); POTASSIUM 4.1 MMOL/L (3.6-5.0); SODIUM 141 MMOL/L (135-145); TOTAL PROTEIN 6.2 GM/DL (6.4-8.2)
[2018-04-12 08:00] VITALS: BP 140/73
[2018-04-12] MEDS ORDERED: SUCR1TAB PO (08:56)
[2018-04-12] MEDS ORDERED: AMOX1TAB12 PO (08:56)
[2018-04-12] MEDS ORDERED: ONDA4TAB10 PO (08:56)
[2018-04-12] MEDS: VANCOMYCIN 1250 MG/NS 250 ML IVPB IV SCH ×4 (09:36→20:19)
[2018-04-12 12:00] VITALS: BP 159/87
[2018-04-12] MEDS ORDERED: HYDROcodone/APAP 10 MG/325 MG (LORTAB) TAB PO PRN (12:45)
[2018-04-12] MEDS ORDERED: ONDANSETRON 4 MG (ZOFRAN) ORAL DISSOLVE TAB PO PRN (12:45)
[2018-04-12] MEDS ORDERED: KETOROLAC 30 MG/ML VIAL IVP PRN (12:45)
--- NOTE | 2018-04-12 12:55 | History & Physicial ---
History of Present Illness History of Present Illness Reason for visit/HPI This is a 53 year old female with rheumatoid arthritis who is on routine DMARD therapy with actemra who presented initially to the emergency room at [place], [place], with a dog bite to her right forearm. She was given a tetanus shot and started on augmentin and her wound was closed with 2 stitches. The dog is her neighbor's dog and is up to date on immunizations. She noticed worsening redness and warmth and drainage so presented to the emergency room at [facility] and it was decided to admit her for IV antibiotics. Date of Admission Apr 11, 2018 at 19:30 Date Seen by Provider: Apr 12, 2018 Time Seen by Provider: 12:48 I consulted on this patient on 04/12/18 12:48 Attending Physician Kimberly Parmar DO Admitting Physician Marcella Balbuena DO Consult Allergies and Home Medications Allergies Coded Allergies: NKANo Known Allergies (Verified Allergy, Unknown, 11/26/05) Home Medications Amoxicillin/Potassium Clav 1 Each Tablet, 1 TAB PO BID, (Reported) 10 DAY SUPPLY FILLED 04-11-18 Duloxetine HCl 60 Mg Capsule.dr, 60 MG PO DAILY, (Reported) Hydrocodone/Acetaminophen 1 Each Tablet, 1 TAB PO TID PRN for PAIN-MODERATE, ( Reported) Ondansetron HCl 4 Mg Tablet, 4 MG PO Q4H PRN for NAUSEA/VOMITING-1ST LINE, ( Reported) Pantoprazole Sodium 40 Mg Tablet.dr, 40 MG PO BID, (Reported) Sucralfate 1 Gm Tablet, 1 GM PO ACHS, (Reported) Tocilizumab 400 Mg/20 Ml Vial, 680 MG IV EVERY 4 WEEKS, (Reported) Patient Home Medication List Home Medication List Reviewed: Yes Past Ktrpxye-Uaocah-Zqztpp Hx Patient Social History Marrital Status: Alcohol Use: Denies Use Recreational Drug Use: No Smoking Status: Current Everyday Smoker Former Smoker, Quit: Nov 17, 2001 Type Used: Cigarettes 2nd Hand Smoke Exposure: Yes Physical Abuse Screen: No Sexual Abuse: No Recent Foreign Travel: No Contact w/other who traveled: No Recent Hopitalizations: No Recent Infectious Disease Expo: No Seasonal Allergies Seasonal Allergies: No Surgeries Yes Adenoidectomy, Gallbladder, Tonsillectomy, Tubal Ligation Respiratory No Cardiovascular No Neurological No Reproductive System Hx 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 Constitutional: weakness EENTM: No see HPI, No no symptoms reported, No ear discharge, No hearing loss, No ear pain, No blurred vision, No double vision, No eye pain, No tearing, No vision loss, No dental problems, No hoarseness, No mouth pain, No mouth swelling , No epistaxis, No nose congestion, No nose pain, No throat pain, No throat swelling, No other Respiratory: No no symptoms reported, No see HPI, No cough, No dyspnea on exertion, No hemoptysis, No orthopnea, No phlegm, No short of breath, No stridor , No wheezing, No other Cardiovascular: No no symptoms reported, No see HPI, No chest pain, No edema, No Hx of Intervention, No palpitations, No syncope, No vascular heart diseas, No other Gastrointestinal: heartburn Genitourinary: No no symptoms reported, No see HPI, No decreased output, No discharge, No dysuria, No frequency, No hematuria, No hesitancy, No incontinence , No nocturia, No pain, No other Musculoskeletal: joint pain Skin: other (right forearm puncture wound with oozing and cellulitis) Psychiatric/Neurological: Denies No Symptoms Reported, Denies See HPI, Denies Anxiety, Denies Depressed, Denies Emotional Problems, Denies Headache, Denies Numbness, Denies Paresthesia, Denies Pre-Existing Deficit, Denies Seizure, Denies Tingling, Denies Tremors, Denies Weakness, Denies Other Physical Exam Vital Signs Vital Signs - First Documented 04/11/18 17:43 Temp 98.0 Pulse 82 Resp 20 B/P (MAP) 168/93 (118) Pulse Ox 98 O2 Delivery Room Air Capillary Refill : Less Than 3 Seconds Height, Weight, BMI Height: 5'4.00" Weight: 178lbs. 2.0oz. [id number]; 30.6 BMI Method:Stated General Appearance: No Apparent Distress Neck: Supple Respiratory: Lungs Clear Cardiovascular: Regular Rate, Rhythm Gastrointestinal: Normal Bowel Sounds, Non Tender, Soft Rectal: Deferred Back: No CVA Tenderness Extremity: Non Tender, No Calf Tenderness, No Pedal Edema Neurologic/Psychiatric: Alert, Oriented x3 Skin: Warm/Dry, Erythema (surrounding right forearm puncture wound extending to elbow and to mid-forearm--puncture wound with oozing but no induration) Comments Laboratory Tests 04/11/18 17:47: Sodium Level 139, Potassium Level 3.9, Chloride Level 103, Carbon Dioxide Level 27, Anion Gap 9, Blood Urea Nitrogen 11, Creatinine 0.85, Estimat Glomerular Filtration Rate > 60, BUN/Creatinine Ratio 13, Glucose Level 98, Calcium Level 9.9, Total Bilirubin 0.5, Aspartate Amino Transf (AST/SGOT) 26, Alanine Aminotransferase (ALT/SGPT) 25, Alkaline Phosphatase 76, C-Reactive Protein High Sensitivity 0.09, Total Protein 7.3, Albumin 4.8H 04/11/18 17:54: White Blood Count 12.6H, Red Blood Count 4.75, Hemoglobin 14.7, Hematocrit 44, Mean Corpuscular Volume 92, Mean Corpuscular Hemoglobin 31, Mean Corpuscular Hemoglobin Concent 34, Red Cell Distribution Width 13.8, Platelet Count 274, Mean Platelet Volume 9.5, Neutrophils (%) (Auto) 72, Lymphocytes (%) (Auto) 19, Monocytes (%) (Auto) 6, Eosinophils (%) (Auto) 3, Basophils (%) (Auto) 0, Neutrophils # (Auto) 9.1H, Lymphocytes # (Auto) 2.4, Monocytes # (Auto) 0.7, Eosinophils # (Auto) 0.4H, Basophils # (Auto) 0.0 04/12/18 05:16: Sodium Level 141, Potassium Level 4.1, Chloride Level 108H, Carbon Dioxide Level 23, Anion Gap 10, Blood Urea Nitrogen 9, Creatinine 0.80, Estimat Glomerular Filtration Rate > 60, BUN/Creatinine Ratio 11, Glucose Level 116H, Calcium Level 9.1, Total Bilirubin 0.3, Aspartate Amino Transf (AST/SGOT) 23, Alanine Aminotransferase (ALT/SGPT) 21, Alkaline Phosphatase 69, Total Protein 6.2L, Albumin 4.0, White Blood Count 9.9, Red Blood Count 4.39, Hemoglobin 13.8 , Hematocrit 41, Mean Corpuscular Volume 92, Mean Corpuscular Hemoglobin 31, Mean Corpuscular Hemoglobin Concent 34, Red Cell Distribution Width 13.6, Platelet Count 228, Mean Platelet Volume 9.7, Neutrophils (%) (Auto) 68, Lymphocytes (%) (Auto) 19, Monocytes (%) (Auto) 8, Eosinophils (%) (Auto) 4, Basophils (%) (Auto) 0, Neutrophils # (Auto) 6.8, Lymphocytes # (Auto) 1.9, Monocytes # (Auto) 0.8, Eosinophils # (Auto) 0.4H, Basophils # (Auto) 0.0, Lactic Acid Level 0.94 Assessment/Plan Assessment and Plan 1. Right forearm dog bite with cellulitis in immunocompromised patient--on Vancomycin and Zosyn, add clindamycin and toradol 2. GERD with recent PUD--resume protonix and carafate 3. Rheumatoid Arthritis--following with rheumatology Admission Diagnosis Admission Status: Inpatient Order (span 2 midnights) Reason for Inpatient Admission: Will need at least 48hrs IV abx Clinical Quality Measures DVT/VTE Risk/Contraindication: Risk Factor Score Per Nursin RFS Level Per Nursing on Admit: 2=Moderate MARCELLA BALBUENA DO Apr 12, 2018 12:55
[2018-04-12] MEDS: LACTOBACILLUS Acidoph/Bulgar (LACTINEX/FLORANEX) TAB PO SCH (15:12)
[2018-04-12] MEDS: SUCRALFATE 1 GM (CARAFATE) TAB PO SCH ×2 (15:12→19:50)
[2018-04-12] MEDS: CLINDAMYCIN 900 MG/50 ML IVPB 50 ML IV SCH ×2 (15:12→21:32)
[2018-04-12 16:00] VITALS: BP 129/59
[2018-04-12 19:42] VITALS: BP 131/70
--- NOTE | 2018-04-12 20:13 | CONSULTATION REPORT ---
DATE OF SERVICE: 04/12/2018 ATTENDING PHYSICIAN: Dr. Balbuena. HISTORY OF PRESENT ILLNESS: The patient is a 53-year-old female with history of rheumatoid arthritis and is currently on an immunosuppressive therapy with tocilizumab IM q 4 weeks. She reports that due to the immunosuppressant that she has had recurrent issues with cellulitis as well as abscess formation in the past. She suffered 2 dog bites of the right upper extremity, 1 around the volar aspect of the elbow along the proximal forearm as well as 1 along the dorsal aspect with 2 small openings. She was initially seen at another institution and given Augmentin and tetanus shot. She reports that she noticed a worsening redness, warmth as well as purulent drainage. Since being admitted and started on Zosyn as well as vancomycin, the redness and swelling as well as erythema have decreased significantly. Her initial white count was elevated at 12; however, has normalized to 9.9. Upon examination, both compartments are soft with full range of motion and no pain upon passive flexion or extension. There are no signs of compartment syndrome and there is no fluctuance to indicate any abscess formation. PAST MEDICAL HISTORY: Rheumatoid arthritis, gastroesophageal reflux disease, diverticulosis, anxiety, depression. PAST SURGICAL HISTORY: Laparoscopic cholecystectomy, tonsillectomy, tubal ligation. ALLERGIES: No known drug allergies. MEDICATIONS: Duloxetine 60 mg daily, hydrocodone p.r.n., Protonix 40 mg b.i.d., Carafate 1 gram q.i.d. tocilizumab IM q.4 weeks. SOCIAL HISTORY: Positive smoke 30 pack years. Negative alcohol. FAMILY HISTORY: Noncontributory. VITAL SIGNS: Temperature 97.8, blood pressure 129/59, pulse 87, respirations 20, pulse ox 93% on room air. REVIEW OF SYSTEMS: Well-nourished female currently in no acute distress. She is not experiencing any shortness of breath, noted no difficulty in breathing. No chest pain, palpitations, diaphoresis. No nausea, vomiting. No diarrhea, constipation. No fever or chills. No recent inadvertent weight loss. All other review of systems negative. PHYSICAL EXAMINATION: CHEST: Clear. Good breath sounds bilaterally. HEART: Regular, no murmurs. HEENT: No scleral icterus. NECK: No cervical lymphadenopathy. EXTREMITIES: No lower extremity edema. Negative Homans sign. EXTREMITIES: Along the right upper extremity along the volar and dorsal aspect of the forearm proximally are 2 bite ellis, which appeared to be canine incisors. There is some surrounding redness and erythema; however, from previous markings on admission; this has declined rapidly. The compartments are soft. There is no pain to passive flexion and extension and there are palpable radial and ulnar pulses. There is no paresthesia as well. ABDOMEN: Soft, nontender, nondistended. SKIN: Warm, dry. LABORATORY DATA: WBC 9.9, hemoglobin 13.8, hematocrit 41, platelets 228. ASSESSMENT AND PLAN: A 53-year-old female with a cellulitis secondary to a dog bite. She also has a history of rheumatoid arthritis and is on immunosuppressant therapy and does have risk factors for infection as well as abscess formation with the rheumatoid arthritis as well as the medication. However, she also is a smoker. At this time, since being started on IV antibiotics, the infection appears to be improving with less redness, erythema as well as soft compartments and no signs of compartment syndrome. There is also no fluctuance or bulla or crepitance to indicate any abscess or any necrotizing soft tissue infection. RECOMMENDATIONS: Continue with conservative management with another day of IV antibiotics and then oral antibiotics to follow as well as ice and elevation as needed. Job ID: [id number] DocumentID: [id number] Dictated Date: 04/12/2018 19:19:13 Impregnator Helper Date: 04/12/2018 20:13:24 Dictated By: MELINDA FARIA MD MTDD
[2018-04-12] MEDS ORDERED: VANCOMYCIN 1250 MG/NS 250 ML IVPB IV SCH ×2 (21:00)
[2018-04-12] MEDS ORDERED: PANTOPRAZOLE 40 MG (PROTONIX) TAB PO SCH (21:00)
[2018-04-13 00:36] VITALS: BP 121/61
[2018-04-13] MEDS: PIPERACILLIN/TAZO 3.375 GM/D5W 100 ML IV SCH ×2 (03:08)
[2018-04-13] MEDS: SUCRALFATE 1 GM (CARAFATE) TAB PO SCH (04:29)
[2018-04-13] MEDS: LACTOBACILLUS Acidoph/Bulgar (LACTINEX/FLORANEX) TAB PO SCH (04:29)
[2018-04-13] MEDS: CLINDAMYCIN 900 MG/50 ML IVPB 50 ML IV SCH (06:06)
[2018-04-13 07:50] VITALS: BP 112/56
[2018-04-13] MEDS ORDERED: TROUGH ORDER-PHARMACY XX ONE (08:00)
[2018-04-13] MEDS ORDERED: DULoxetine 30 MG (CYMBALTA) CAP PO SCH (09:00)
--- NOTE | 2018-04-13 12:45 | Discharge Summary ---
Diagnosis/Chief Complaint Date of Admission Apr 11, 2018 at 7:30 pm Date of Discharge Apr 13, 2018 at 8:32 am Discharge Diagnosis 1. Right forearm dog bite with cellulitis in immunocompromised patient--on Vancomycin and Zosyn, add clindamycin and toradol 2. GERD with recent PUD--resume protonix and carafate 3. Rheumatoid Arthritis--following with rheumatology Reason Hospital Visit This is a 53 year old female with rheumatoid arthritis who is on routine DMARD therapy with actemra who presented initially to the emergency room at [place], [place], with a dog bite to her right forearm. She was given a tetanus shot and started on augmentin and her wound was closed with 2 stitches. The dog is her neighbor's dog and is up to date on immunizations. She noticed worsening redness and warmth and drainage so presented to the emergency room at [facility] and it was decided to admit her for IV antibiotics. Discharge Summary Hospital Course Hospital Course This is a 53 year old female with rheumatoid arthritis who is on routine DMARD therapy with actemra who presented initially to the emergency room at [place], [place], with a dog bite to her right forearm. She was given a tetanus shot and started on augmentin and her wound was closed with 2 stitches. The dog is her neighbor's dog and is up to date on immunizations. She noticed worsening redness and warmth and drainage so presented to the emergency room at [facility] and it was decided to admit her for IV antibiotics. She was initially given IV vancomycin and zosyn however her arm was still red, warm and tender the following day so clindamycin as well as toradol were added. The patient informed me that she needed to be discharged on the morning of 04/13/18 due to needing to be in [place] to close on a house at 2pm on 04/13/18. However , the patient left AMA prior to me arriving to see her on the morning of . The nurse did report that the patient's arm looked much better prior to discharge. Labs Laboratory Tests 04/11/18 17:47: Albumin 4.8H 04/11/18 17:54: White Blood Count 12.6H, Neutrophils # (Auto) 9.1H, Eosinophils # (Auto) 0.4H 04/12/18 05:16: Eosinophils # (Auto) 0.4H, Chloride Level 108H, Glucose Level 116H, Total Protein 6.2L Procedures None. Discharge Physical Examination Allergies: Coded Allergies: NKANo Known Allergies (Verified Allergy, Unknown, 11/26/05) Vitals & I&Os Vital Signs Date Time Temp Pulse Resp B/P (MAP) Pulse Ox O2 Delivery O2 Flow Rate FiO2 04/13/18 07:50 98.6 74 20 112/56 (74) 96 Room Air Discharge Home Medications Reviewed and agree with Discharge Medication list on patient's Discharge Instruction sheet Instructions to Patient/Family Please see electronic discharge instructions given to patient. Clinical Quality Measures DVT/VTE Risk/Contraindication: Risk Factor Score Per Nursin RFS Level Per Nursing on Admit: 2=Moderate MIKI MAURER DO Apr 13, 2018 12:45 pm
== END 2018-04-13 08:32 | disposition left against medical advice (07) | DRG 605 ==
LOC: EDUNIT# 17:06 → ER 17:08 → 4TH 19:30
PROVIDERS: ADMIT Internal Medicine; ATTEND Internal Medicine
DX: S51.851A Open bite of right forearm, initial encounter (principal); L03.113 Cellulitis of right upper limb; K21.9 Gastro-esophageal reflux disease without esophagitis; K27.9 Peptic ulcer, site unspecified, unspecified as acute or chronic, without hemorrhage or perforation; M06.9 Rheumatoid arthritis, unspecified; F41.9 Anxiety disorder, unspecified; F32.9 Major depressive disorder, single episode, unspecified; W54.0XXA Bitten by dog, initial encounter
CPT/HCPCS: 36415; 80053; 83605; 85025; 86141; 87070; 87077; 87186; 87205; 96365; 96375